=== PATIENT | male | born 1940 | race Caucasian/White ===

== ENCOUNTER 2017-08-02 14:33 | Outpatient (CLI) | payer OTHER ==
[2017-08-02 15:28] LABS: Anion Gap 17 mmol/L (10-20); BUN (Urea Nitrogen) 50 mg/dL (8.4-25.7); Calc. Creatinine Clearance 0 mL/min (70-130); Calcium 9.7 mg/dL (7.8-10.44); Carbon Dioxide 22 mmol/L (23-31); Chloride 106 mmol/L (98-107); Estimated GFR-MDRD 24; Glucose 149 mg/dL (83-110); Potassium 5.1 mmol/L (3.5-5.1); Sodium 140 mmol/L (136-145)
== END 2017-08-02 14:34 | disposition home or self-care (01) ==
LOC: MADLAB 14:33
PROVIDERS: ATTEND Internal Medicine
DX: I12.9 Hypertensive chronic kidney disease with stage 1 through stage 4 chronic kidney disease, or unspecified chronic kidney disease (principal); N18.3 Chronic kidney disease, stage 3 (moderate)
CPT/HCPCS: 36415; 80048

== ENCOUNTER 2018-08-16 10:57 | Outpatient (CLI) | payer OTHER ==
--- NOTE | 2018-08-16 11:29 | CT ---
CT BRAIN WITHOUT CONTRAST HISTORY: Episodic altered awareness, altered mental status COMPARISON: 08/09/2002. FINDINGS: There are changes of cortical atrophy and chronic small vessel ischemic disease. 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 No evidence of acute infarct, hemorrhage, midline shift or abnormal extra-axial fluid collections is seen. The bony calvarium is intact. The visualized paranasa l sinuses and mastoid air cells are well aerated. IMPRESSION: No CT evidence of acute intracranial process.
[2018-08-16 17:56] LABS: Folate (Folic Acid) 6.4 ng/mL (7.0-31.4)
[2018-08-19 14:46] LABS: Albumin 3.8 g/dL (3.4-4.8); Anion Gap 15 mmol/L (10-20); Bilirubin, Total 1.4 mg/dL (0.2-1.2); Calcium 8.9 mg/dL (7.8-10.44); Carbon Dioxide 18 mmol/L (23-31); Chloride 110 mmol/L (98-107); Globulin 2.3 g/dL (2.4-3.5); Glucose 138 mg/dL (83-110); Potassium 4.8 mmol/L (3.5-5.1); Protein, Total 6.1 g/dL (5.8-8.1); Sodium 138 mmol/L (136-145)
[2018-08-19 14:47] LABS: Alkaline Phosphatase 101 U/L (40-150)
[2018-08-19 14:48] LABS: Calc. Creatinine Clearance 0 mL/min (70-130); Estimated GFR-MDRD 25
[2018-08-19 14:49] LABS: BUN (Urea Nitrogen) 33 mg/dL (8.4-25.7)
[2018-08-19 14:50] LABS: AST (SGOT) 17 U/L (5-34)
[2018-08-19 14:51] LABS: ALT (SGPT) 16 U/L (8-55)
== END 2018-08-16 10:58 | disposition home or self-care (01) ==
LOC: MADCT 10:57
PROVIDERS: ATTEND Family Medicine
DX: R40.4 Transient alteration of awareness (principal)
CPT/HCPCS: 36415; 70450; 80053; 82140; 82607; 82746; 84207; 84443; 85025

== ENCOUNTER 2018-10-04 11:29 | Outpatient (CLI) | payer OTHER ==
--- NOTE | 2018-10-04 12:43 | RAD ---
FRONTAL VIEW CHEST: INDICATION: Cough for 1 month. Chronic bronchitis. FINDINGS: There are punctate calcific densities of the chest bilaterally indicating granulomatous calcification . Left-sided AICD from a subclavian approach is present with leads overlying the right atrial and ri ght ventricular regions. Interstitial prominence of each lung is seen. No significant effusion or d iscrete pneumothorax. No lobar consolidation. IMPRESSION: 1. Interstitial prominence of each lung favoring edema. Superimposed interstitial lung disease is n ot excluded. Correlate clinically. 2. Evidence of prior granulomatous disease. POS: C
== END 2018-10-04 11:30 | disposition home or self-care (01) ==
LOC: MADRAD 11:29
PROVIDERS: ATTEND Family Medicine
DX: J44.9 Chronic obstructive pulmonary disease, unspecified (principal)
CPT/HCPCS: 71046

== ENCOUNTER 2019-02-20 11:26 | Outpatient (CLI) | payer OTHER ==
[2019-02-20 12:48] LABS: ALT (SGPT) 14 U/L (8-55); AST (SGOT) 17 U/L (5-34); Albumin 3.9 g/dL (3.4-4.8); Alkaline Phosphatase 95 U/L (40-110); Anion Gap 16 mmol/L (10-20); BUN (Urea Nitrogen) 31 mg/dL (8.4-25.7); Bilirubin, Total 1.3 mg/dL (0.2-1.2); Calc. Creatinine Clearance 0 mL/min (70-130); Carbon Dioxide 22 mmol/L (23-31); Chloride 110 mmol/L (98-107); Estimated GFR-MDRD 20; Globulin 2.7 g/dL (2.4-3.5); Glucose 126 mg/dL (83-110); Potassium 4.6 mmol/L (3.5-5.1); Protein, Total 6.6 g/dL (5.8-8.1); Sodium 143 mmol/L (136-145)
== END 2019-02-20 11:27 | disposition home or self-care (01) ==
LOC: MADLAB 11:26
PROVIDERS: ATTEND Internal Medicine
DX: I12.9 Hypertensive chronic kidney disease with stage 1 through stage 4 chronic kidney disease, or unspecified chronic kidney disease (principal); N18.3 Chronic kidney disease, stage 3 (moderate)
CPT/HCPCS: 36415; 80053; 82306; 83970

== ENCOUNTER 2019-08-05 17:56 | Inpatient (IN) | payer MEDICARE, OTHER ==
[2019-08-05] MEDS: Ascorbic Acid 500 mg Chewable Tablet PO SCH (20:49)
[2019-08-05] MEDS: Carvedilol 3.125 MG TAB PO SCH (20:49)
[2019-08-05] MEDS: Gabapentin 100 MG CAP PO PRN (20:49)
[2019-08-05] MEDS: Senokot 8.6 MG TAB PO SCH (20:49)
[2019-08-05] MEDS: Tamsulosin HCl 0.4 MG CAP PO SCH (20:50)
[2019-08-05] MEDS ORDERED: Heparin 5,000 UNITS/ML VIAL SC SCH (21:00)
[2019-08-05] MEDS: Heparin 5,000 UNITS/ML VIAL SC SCH (21:51)
[2019-08-05] MEDS: Acetaminophen 500 MG TAB PO SCH (22:59)
[2019-08-06] MEDS: Acetaminophen 500 MG TAB PO SCH (05:16)
[2019-08-06 05:23] LABS: #Basophils 0.1 thou/uL (0.0-0.2); #Eosinphils 0.6 thou/uL (0.0-0.7); #Monocytes 0.7 thou/uL (0.11-0.59); %Basophils 0.7 % (0.0-1.0); %Eosinophils 6.6 % (0.0-10.0); %Lymphocytes 10.8 % (21.0-51.0); %Neutrophils 74.9 % (42.0-75.0); Hemoglobin 9.4 g/dL (14.0-18.0); Mean Corpuscular HGB CONC 32.9 g/dL (32.0-36.0); Mean Corpuscular Hemoglobin 32.8 pg (27.0-31.0); Mean Corpuscular Volume 99.7 fL (78.0-98.0); Platelet Count 303 thou/uL (130-400); RBC Distribution Width 15.3 % (11.5-14.5); Red Blood Cell (RBC) Count 2.85 mill/uL (4.70-6.10); White Blood Cell (WBC) Count 9.4 thou/uL (4.8-10.8)
[2019-08-06 05:40] LABS: ALT (SGPT) 17 U/L (8-55); AST (SGOT) 23 U/L (5-34); Albumin 3.2 g/dL (3.4-4.8); Alkaline Phosphatase 104 U/L (40-110); Anion Gap 15 mmol/L (10-20); BUN (Urea Nitrogen) 44 mg/dL (8.4-25.7); Bilirubin, Total 1.2 mg/dL (0.2-1.2); Calc. Creatinine Clearance 25 mL/min (70-130); Calcium 8.4 mg/dL (7.8-10.44); Carbon Dioxide 23 mmol/L (23-31); Chloride 108 mmol/L (98-107); Estimated GFR-MDRD 27; Globulin 2.7 g/dL (2.4-3.5); Glucose 134 mg/dL (83-110); Potassium 4.3 mmol/L (3.5-5.1); Protein, Total 5.9 g/dL (5.8-8.1); Sodium 142 mmol/L (136-145)
[2019-08-06] MEDS: Carvedilol 3.125 MG TAB PO SCH ×2 (08:39→20:21)
[2019-08-06] MEDS: Senokot 8.6 MG TAB PO SCH ×2 (08:39→20:20)
[2019-08-06] MEDS: Finasteride 5 MG TAB PO SCH (08:39)
[2019-08-06] MEDS: Vitamin E 400 UNITS CAP PO SCH (08:40)
[2019-08-06] MEDS: Ascorbic Acid 500 mg Chewable Tablet PO SCH ×2 (08:40→20:21)
[2019-08-06] MEDS: Multivit, Therapeutic 1 TAB PO SCH (08:40)
[2019-08-06] MEDS: Gabapentin 100 MG CAP PO PRN (08:40)
[2019-08-06] MEDS: Ferrous Sulfate 325 MG TAB PO SCH ×2 (08:40→17:01)
[2019-08-06] MEDS: Tamsulosin HCl 0.4 MG CAP PO SCH ×2 (08:40→20:21)
[2019-08-06] MEDS: Heparin 5,000 UNITS/ML VIAL SC SCH ×2 (08:46→20:20)
[2019-08-06] MEDS: Polyethylene Glycol 3350 17 GM Packet PO SCH (08:46)
[2019-08-06] MEDS: Acetaminophen 500 MG TAB PO PRN (12:07)
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
[2019-08-07] MEDS: Acetaminophen 500 MG TAB PO PRN ×2 (08:22→17:51)
[2019-08-07] MEDS: Polyethylene Glycol 3350 17 GM Packet PO SCH (08:26)
[2019-08-07] MEDS: Ascorbic Acid 500 mg Chewable Tablet PO SCH ×2 (08:27→20:50)
[2019-08-07] MEDS: Finasteride 5 MG TAB PO SCH (08:27)
[2019-08-07] MEDS: Heparin 5,000 UNITS/ML VIAL SC SCH ×2 (08:27→20:50)
[2019-08-07] MEDS: Ferrous Sulfate 325 MG TAB PO SCH ×2 (08:27→17:51)
[2019-08-07] MEDS: Multivit, Therapeutic 1 TAB PO SCH (08:27)
[2019-08-07] MEDS: Carvedilol 3.125 MG TAB PO SCH ×2 (08:27→20:50)
[2019-08-07] MEDS: Tamsulosin HCl 0.4 MG CAP PO SCH ×2 (08:27→20:54)
[2019-08-07] MEDS: Senokot 8.6 MG TAB PO SCH ×2 (08:27→20:53)
[2019-08-07] MEDS: Vitamin E 400 UNITS CAP PO SCH (08:38)
[2019-08-07] MEDS: Gabapentin 100 MG CAP PO SCH (20:50)
[2019-08-08] MEDS ORDERED: Tetracaine 0.5% OPHTH SOLN/PF 4 ML BOT ONE (08:27)
[2019-08-08] MEDS: Polyethylene Glycol 3350 17 GM Packet PO SCH (08:31)
[2019-08-08] MEDS: Acetaminophen 500 MG TAB PO PRN ×2 (08:32→18:25)
[2019-08-08] MEDS: Finasteride 5 MG TAB PO SCH (08:33)
[2019-08-08] MEDS: Carvedilol 3.125 MG TAB PO SCH ×2 (08:33→21:12)
[2019-08-08] MEDS: Ascorbic Acid 500 mg Chewable Tablet PO SCH ×2 (08:33→21:12)
[2019-08-08] MEDS: Tamsulosin HCl 0.4 MG CAP PO SCH ×2 (08:33→21:13)
[2019-08-08] MEDS: Ferrous Sulfate 325 MG TAB PO SCH ×2 (08:33→18:25)
[2019-08-08] MEDS: Multivit, Therapeutic 1 TAB PO SCH (08:34)
[2019-08-08] MEDS: Heparin 5,000 UNITS/ML VIAL SC SCH ×2 (08:34→21:13)
[2019-08-08] MEDS: Vitamin E 400 UNITS CAP PO SCH (08:34)
[2019-08-08] MEDS: Senokot 8.6 MG TAB PO SCH ×2 (08:34→21:13)
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
[2019-08-08] MEDS: Gabapentin 100 MG CAP PO SCH (21:12)
[2019-08-09] MEDS: Carvedilol 3.125 MG TAB PO SCH ×2 (08:18→21:19)
[2019-08-09] MEDS: Multivit, Therapeutic 1 TAB PO SCH (08:18)
[2019-08-09] MEDS: Heparin 5,000 UNITS/ML VIAL SC SCH ×2 (08:18→21:20)
[2019-08-09] MEDS: Senokot 8.6 MG TAB PO SCH ×2 (08:18→21:19)
[2019-08-09] MEDS: Tamsulosin HCl 0.4 MG CAP PO SCH ×2 (08:18→21:19)
[2019-08-09] MEDS: Ferrous Sulfate 325 MG TAB PO SCH ×2 (08:18→16:53)
[2019-08-09] MEDS: Ascorbic Acid 500 mg Chewable Tablet PO SCH ×2 (08:18→21:19)
[2019-08-09] MEDS: Finasteride 5 MG TAB PO SCH (08:18)
[2019-08-09] MEDS: Polyethylene Glycol 3350 17 GM Packet PO SCH (08:18)
[2019-08-09] MEDS: Vitamin E 400 UNITS CAP PO SCH (08:36)
[2019-08-09] MEDS ORDERED: Polyethylene Glycol 3350 17 GM Packet PO PRN (11:32)
[2019-08-09] MEDS: Acetaminophen 500 MG TAB PO PRN (21:19)
[2019-08-09] MEDS: Gabapentin 100 MG CAP PO SCH (21:19)
[2019-08-10] MEDS: Tamsulosin HCl 0.4 MG CAP PO SCH ×2 (08:12→20:53)
[2019-08-10] MEDS: Vitamin E 400 UNITS CAP PO SCH (08:12)
[2019-08-10] MEDS: Senokot 8.6 MG TAB PO SCH ×2 (08:12→20:53)
[2019-08-10] MEDS: Finasteride 5 MG TAB PO SCH (08:12)
[2019-08-10] MEDS: Ascorbic Acid 500 mg Chewable Tablet PO SCH ×2 (08:13→20:51)
[2019-08-10] MEDS: Ferrous Sulfate 325 MG TAB PO SCH ×2 (08:13→17:00)
[2019-08-10] MEDS: Multivit, Therapeutic 1 TAB PO SCH (08:13)
[2019-08-10] MEDS: Carvedilol 3.125 MG TAB PO SCH ×2 (08:13→20:52)
[2019-08-10] MEDS: Heparin 5,000 UNITS/ML VIAL SC SCH ×2 (08:13→20:52)
[2019-08-10] MEDS: Gabapentin 100 MG CAP PO SCH (20:52)
[2019-08-10] MEDS: Acetaminophen 500 MG TAB PO PRN (20:53)
[2019-08-11 05:40] LABS: Anion Gap 14 mmol/L (10-20); BUN (Urea Nitrogen) 42 mg/dL (8.4-25.7); Calc. Creatinine Clearance 28 mL/min (70-130); Calcium 8.3 mg/dL (7.8-10.44); Carbon Dioxide 20 mmol/L (23-31); Chloride 111 mmol/L (98-107); Estimated GFR-MDRD 31; Glucose 108 mg/dL (83-110); Potassium 4.3 mmol/L (3.5-5.1); Sodium 141 mmol/L (136-145)
[2019-08-11] MEDS: Ferrous Sulfate 325 MG TAB PO SCH ×2 (08:15→18:53)
[2019-08-11] MEDS: Finasteride 5 MG TAB PO SCH (08:15)
[2019-08-11] MEDS: Multivit, Therapeutic 1 TAB PO SCH (08:15)
[2019-08-11] MEDS: Ascorbic Acid 500 mg Chewable Tablet PO SCH ×2 (08:16→20:39)
[2019-08-11] MEDS: Vitamin E 400 UNITS CAP PO SCH (08:16)
[2019-08-11] MEDS: Carvedilol 3.125 MG TAB PO SCH ×2 (08:16→20:39)
[2019-08-11] MEDS: Tamsulosin HCl 0.4 MG CAP PO SCH ×2 (08:16→20:39)
[2019-08-11] MEDS: Heparin 5,000 UNITS/ML VIAL SC SCH ×2 (08:17→20:43)
[2019-08-11] MEDS: Senokot 8.6 MG TAB PO SCH ×2 (08:23→20:40)
[2019-08-11] MEDS: traMADol HCl 50 MG TAB PO PRN (08:36)
[2019-08-11] MEDS ORDERED: Ferrous Sulfate 325 MG TAB ONE (17:11)
[2019-08-11] MEDS: Gabapentin 100 MG CAP PO SCH (20:39)
[2019-08-11] MEDS: Acetaminophen 500 MG TAB PO PRN (20:39)
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
[2019-08-12] MEDS: Ferrous Sulfate 325 MG TAB PO SCH ×2 (08:21→17:22)
[2019-08-12] MEDS: Finasteride 5 MG TAB PO SCH (08:22)
[2019-08-12] MEDS: Senokot 8.6 MG TAB PO SCH ×2 (08:22→21:25)
[2019-08-12] MEDS: Heparin 5,000 UNITS/ML VIAL SC SCH ×2 (08:22→21:25)
[2019-08-12] MEDS: Carvedilol 3.125 MG TAB PO SCH ×2 (08:22→21:24)
[2019-08-12] MEDS: Ascorbic Acid 500 mg Chewable Tablet PO SCH ×2 (08:22→21:24)
[2019-08-12] MEDS: Tamsulosin HCl 0.4 MG CAP PO SCH ×2 (08:23→21:24)
[2019-08-12] MEDS: Multivit, Therapeutic 1 TAB PO SCH (08:23)
[2019-08-12] MEDS: Vitamin E 400 UNITS CAP PO SCH (08:23)
[2019-08-12] MEDS: Acetaminophen 500 MG TAB PO PRN ×2 (08:23→21:24)
[2019-08-12] MEDS: traMADol HCl 50 MG TAB PO PRN (08:29)
[2019-08-12] MEDS: Gabapentin 100 MG CAP PO SCH (21:25)
[2019-08-13] MEDS: Ferrous Sulfate 325 MG TAB PO SCH ×2 (08:14→17:00)
[2019-08-13] MEDS: Senokot 8.6 MG TAB PO SCH ×2 (08:14→20:08)
[2019-08-13] MEDS: Carvedilol 3.125 MG TAB PO SCH ×2 (08:14→20:08)
[2019-08-13] MEDS: Heparin 5,000 UNITS/ML VIAL SC SCH ×2 (08:14→20:07)
[2019-08-13] MEDS: Tamsulosin HCl 0.4 MG CAP PO SCH ×2 (08:14→20:07)
[2019-08-13] MEDS: Ascorbic Acid 500 mg Chewable Tablet PO SCH ×2 (08:15→20:08)
[2019-08-13] MEDS: Vitamin E 400 UNITS CAP PO SCH (08:15)
[2019-08-13] MEDS: Finasteride 5 MG TAB PO SCH (08:15)
[2019-08-13] MEDS: Multivit, Therapeutic 1 TAB PO SCH (08:15)
[2019-08-13] MEDS: Acetaminophen 500 MG TAB PO PRN (08:17)
[2019-08-13] MEDS: Gabapentin 100 MG CAP PO SCH (20:07)
[2019-08-14] MEDS: Multivit, Therapeutic 1 TAB PO SCH (08:14)
[2019-08-14] MEDS: Vitamin E 400 UNITS CAP PO SCH (08:14)
[2019-08-14] MEDS: Ferrous Sulfate 325 MG TAB PO SCH ×2 (08:15→17:00)
[2019-08-14] MEDS: Tamsulosin HCl 0.4 MG CAP PO SCH ×2 (08:15→20:24)
[2019-08-14] MEDS: Senokot 8.6 MG TAB PO SCH ×2 (08:15→20:24)
[2019-08-14] MEDS: Heparin 5,000 UNITS/ML VIAL SC SCH ×2 (08:16→20:24)
[2019-08-14] MEDS: Finasteride 5 MG TAB PO SCH (08:16)
[2019-08-14] MEDS: Carvedilol 3.125 MG TAB PO SCH ×2 (08:16→20:24)
[2019-08-14] MEDS: Ascorbic Acid 500 mg Chewable Tablet PO SCH ×2 (08:16→20:24)
[2019-08-14] MEDS: traMADol HCl 50 MG TAB PO PRN (09:15)
[2019-08-14] MEDS: Gabapentin 100 MG CAP PO SCH (20:24)
[2019-08-15] MEDS: traMADol HCl 50 MG TAB PO PRN ×2 (07:10→20:41)
[2019-08-15] MEDS: Acetaminophen 500 MG TAB PO PRN (07:11)
[2019-08-15] MEDS: Multivit, Therapeutic 1 TAB PO SCH (08:37)
[2019-08-15] MEDS: Ferrous Sulfate 325 MG TAB PO SCH ×2 (08:37→17:03)
[2019-08-15] MEDS: Ascorbic Acid 500 mg Chewable Tablet PO SCH ×2 (08:38→20:40)
[2019-08-15] MEDS: Vitamin E 400 UNITS CAP PO SCH (08:38)
[2019-08-15] MEDS: Heparin 5,000 UNITS/ML VIAL SC SCH ×2 (08:38→20:45)
[2019-08-15] MEDS: Carvedilol 3.125 MG TAB PO SCH ×2 (08:38→20:41)
[2019-08-15] MEDS: Tamsulosin HCl 0.4 MG CAP PO SCH ×2 (08:38→20:40)
[2019-08-15] MEDS: Senokot 8.6 MG TAB PO SCH ×2 (08:38→20:41)
[2019-08-15] MEDS: Finasteride 5 MG TAB PO SCH (08:38)
[2019-08-15] MEDS: Gabapentin 100 MG CAP PO SCH (20:40)
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
[2019-08-16] MEDS: Vitamin E 400 UNITS CAP PO SCH (09:24)
[2019-08-16] MEDS: Carvedilol 3.125 MG TAB PO SCH ×2 (09:24→20:16)
[2019-08-16] MEDS: Ferrous Sulfate 325 MG TAB PO SCH ×2 (09:24→17:03)
[2019-08-16] MEDS: Multivit, Therapeutic 1 TAB PO SCH (09:24)
[2019-08-16] MEDS: Ascorbic Acid 500 mg Chewable Tablet PO SCH ×2 (09:24→20:16)
[2019-08-16] MEDS: Finasteride 5 MG TAB PO SCH (09:24)
[2019-08-16] MEDS: Tamsulosin HCl 0.4 MG CAP PO SCH ×2 (09:24→20:15)
[2019-08-16] MEDS: Senokot 8.6 MG TAB PO SCH ×2 (09:24→20:16)
[2019-08-16] MEDS: Acetaminophen 500 MG TAB PO PRN (09:25)
[2019-08-16] MEDS: Heparin 5,000 UNITS/ML VIAL SC SCH ×2 (09:25→20:15)
[2019-08-16] MEDS: Gabapentin 100 MG CAP PO SCH (20:16)
[2019-08-17] MEDS: Ferrous Sulfate 325 MG TAB PO SCH ×2 (08:45→17:06)
[2019-08-17] MEDS: Ascorbic Acid 500 mg Chewable Tablet PO SCH ×2 (08:45→20:16)
[2019-08-17] MEDS: Multivit, Therapeutic 1 TAB PO SCH (08:45)
[2019-08-17] MEDS: Senokot 8.6 MG TAB PO SCH ×2 (08:45→20:20)
[2019-08-17] MEDS: Vitamin E 400 UNITS CAP PO SCH (08:45)
[2019-08-17] MEDS: Tamsulosin HCl 0.4 MG CAP PO SCH ×2 (08:46→20:15)
[2019-08-17] MEDS: Heparin 5,000 UNITS/ML VIAL SC SCH ×2 (08:46→20:15)
[2019-08-17] MEDS: Carvedilol 3.125 MG TAB PO SCH ×2 (08:46→20:15)
[2019-08-17] MEDS: Finasteride 5 MG TAB PO SCH (08:46)
[2019-08-17] MEDS: Acetaminophen 500 MG TAB PO PRN (08:46)
[2019-08-17] MEDS: Gabapentin 100 MG CAP PO SCH (20:13)
[2019-08-18] MEDS: Acetaminophen 500 MG TAB PO PRN (03:54)
[2019-08-18] MEDS: Senokot 8.6 MG TAB PO SCH ×2 (08:54→20:47)
[2019-08-18] MEDS: Ferrous Sulfate 325 MG TAB PO SCH ×2 (08:54→17:16)
[2019-08-18] MEDS: Multivit, Therapeutic 1 TAB PO SCH (08:54)
[2019-08-18] MEDS: Finasteride 5 MG TAB PO SCH (08:55)
[2019-08-18] MEDS: Ascorbic Acid 500 mg Chewable Tablet PO SCH ×2 (08:55→20:45)
[2019-08-18] MEDS: Heparin 5,000 UNITS/ML VIAL SC SCH ×2 (08:55→20:46)
[2019-08-18] MEDS: Vitamin E 400 UNITS CAP PO SCH (08:55)
[2019-08-18] MEDS: Tamsulosin HCl 0.4 MG CAP PO SCH ×2 (08:55→20:45)
[2019-08-18] MEDS: Carvedilol 3.125 MG TAB PO SCH ×2 (08:55→20:43)
[2019-08-18] MEDS: traMADol HCl 50 MG TAB PO PRN (19:38)
[2019-08-18] MEDS: Gabapentin 100 MG CAP PO SCH (20:43)
[2019-08-19] MEDS: Acetaminophen 500 MG TAB PO PRN ×2 (05:05→19:26)
[2019-08-19 05:25] LABS: #Eosinphils 0.4 thou/uL (0.0-0.7); #Lymphocytes 0.9 thou/uL (1.20-3.40); #Monocytes 0.5 thou/uL (0.11-0.59); #Neutrophils 4.4 thou/uL (1.40-6.50); %Basophils 0.8 % (0.0-1.0); %Eosinophils 7.1 % (0.0-10.0); %Lymphocytes 14.2 % (21.0-51.0); %Monocytes 8.5 % (0.0-10.0); %Neutrophils 69.5 % (42.0-75.0); Hemoglobin 9.8 g/dL (14.0-18.0); Mean Corpuscular HGB CONC 31.2 g/dL (32.0-36.0); Mean Corpuscular Hemoglobin 32.2 pg (27.0-31.0); Mean Corpuscular Volume 103.3 fL (78.0-98.0); Mean Platelet Volume 7.8 fL (7.4-10.4); Platelet Count 161 thou/uL (130-400); RBC Distribution Width 15.2 % (11.5-14.5); Red Blood Cell (RBC) Count 3.04 mill/uL (4.70-6.10); White Blood Cell (WBC) Count 6.3 thou/uL (4.8-10.8)
[2019-08-19 05:44] LABS: Anion Gap 15 mmol/L (10-20); BUN (Urea Nitrogen) 52 mg/dL (8.4-25.7); Calc. Creatinine Clearance 27 mL/min (70-130); Carbon Dioxide 21 mmol/L (23-31); Chloride 110 mmol/L (98-107); Estimated GFR-MDRD 29; Glucose 112 mg/dL (83-110); Potassium 4.5 mmol/L (3.5-5.1); Sodium 141 mmol/L (136-145)
[2019-08-19] MEDS: Ferrous Sulfate 325 MG TAB PO SCH ×2 (08:05→17:02)
[2019-08-19] MEDS: Senokot 8.6 MG TAB PO SCH ×2 (08:05→20:46)
[2019-08-19] MEDS: Finasteride 5 MG TAB PO SCH (08:05)
[2019-08-19] MEDS: Vitamin E 400 UNITS CAP PO SCH (08:05)
[2019-08-19] MEDS: Multivit, Therapeutic 1 TAB PO SCH (08:05)
[2019-08-19] MEDS: Carvedilol 3.125 MG TAB PO SCH ×2 (08:05→20:48)
[2019-08-19] MEDS: Heparin 5,000 UNITS/ML VIAL SC SCH ×2 (08:05→20:49)
[2019-08-19] MEDS: Tamsulosin HCl 0.4 MG CAP PO SCH ×2 (08:05→20:47)
[2019-08-19] MEDS: Ascorbic Acid 500 mg Chewable Tablet PO SCH ×2 (08:06→20:46)
[2019-08-19] MEDS: Gabapentin 100 MG CAP PO SCH (20:47)
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
[2019-08-20] MEDS: Acetaminophen 500 MG TAB PO PRN (08:32)
[2019-08-20] MEDS: Vitamin E 400 UNITS CAP PO SCH (08:32)
[2019-08-20] MEDS: Multivit, Therapeutic 1 TAB PO SCH (08:32)
[2019-08-20] MEDS: Ferrous Sulfate 325 MG TAB PO SCH ×2 (08:32→16:53)
[2019-08-20] MEDS: Heparin 5,000 UNITS/ML VIAL SC SCH ×2 (08:33→20:25)
[2019-08-20] MEDS: Tamsulosin HCl 0.4 MG CAP PO SCH ×2 (08:33→20:29)
[2019-08-20] MEDS: Senokot 8.6 MG TAB PO SCH ×2 (08:33→22:14)
[2019-08-20] MEDS: Carvedilol 3.125 MG TAB PO SCH ×2 (08:33→20:29)
[2019-08-20] MEDS: Finasteride 5 MG TAB PO SCH (08:33)
[2019-08-20] MEDS: Ascorbic Acid 500 mg Chewable Tablet PO SCH ×2 (08:33→20:26)
[2019-08-20] MEDS: traMADol HCl 50 MG TAB PO PRN (13:26)
[2019-08-20] MEDS: Gabapentin 100 MG CAP PO SCH (20:28)
[2019-08-21] MEDS: traMADol HCl 50 MG TAB PO PRN (07:45)
[2019-08-21] MEDS: Ferrous Sulfate 325 MG TAB PO SCH ×2 (08:56→17:17)
[2019-08-21] MEDS: Carvedilol 3.125 MG TAB PO SCH ×2 (08:57→21:30)
[2019-08-21] MEDS: Ascorbic Acid 500 mg Chewable Tablet PO SCH ×2 (08:57→21:30)
[2019-08-21] MEDS: Finasteride 5 MG TAB PO SCH (08:57)
[2019-08-21] MEDS: Heparin 5,000 UNITS/ML VIAL SC SCH ×2 (08:57→21:30)
[2019-08-21] MEDS: Multivit, Therapeutic 1 TAB PO SCH (08:58)
[2019-08-21] MEDS: Senokot 8.6 MG TAB PO SCH ×2 (08:58→21:31)
[2019-08-21] MEDS: Vitamin E 400 UNITS CAP PO SCH (08:59)
[2019-08-21] MEDS: Tamsulosin HCl 0.4 MG CAP PO SCH ×2 (08:59→21:30)
[2019-08-21 11:31] VITALS: BMI 23.1
[2019-08-21] MEDS: Gabapentin 100 MG CAP PO SCH (21:30)
[2019-08-21] MEDS: Acetaminophen 500 MG TAB PO PRN (23:19)
[2019-08-22] MEDS: traMADol HCl 50 MG TAB PO PRN (04:50)
[2019-08-22] MEDS: Ascorbic Acid 500 mg Chewable Tablet PO SCH ×2 (08:20→20:36)
[2019-08-22] MEDS: Vitamin E 400 UNITS CAP PO SCH (08:20)
[2019-08-22] MEDS: Finasteride 5 MG TAB PO SCH (08:20)
[2019-08-22] MEDS: Multivit, Therapeutic 1 TAB PO SCH (08:20)
[2019-08-22] MEDS: Carvedilol 3.125 MG TAB PO SCH ×2 (08:20→20:36)
[2019-08-22] MEDS: Tamsulosin HCl 0.4 MG CAP PO SCH ×2 (08:20→20:36)
[2019-08-22] MEDS: Ferrous Sulfate 325 MG TAB PO SCH ×2 (08:20→17:39)
[2019-08-22] MEDS: Senokot 8.6 MG TAB PO SCH ×2 (08:21→20:36)
[2019-08-22] MEDS: Heparin 5,000 UNITS/ML VIAL SC SCH ×2 (08:21→20:36)
[2019-08-22] MEDS: Acetaminophen 500 MG TAB PO PRN ×2 (08:25→18:24)
--- NOTE | 2019-08-22 15:50 | RAD ---
TWO VIEWS RIGHT HUMERUS: 08/22/19 COMPARISON: 07/26/19 HISTORY: Fall with recent history of humeral fracture. FINDINGS: Two views right humerus shows a stable comminuted fracture of the proximal aspect of the humerus. Thi s is moderately displaced. No dislocation the glenohumeral joint is seen. No significant callus formation is seen. IMPRESSION: Stable comminuted proximal humeral fracture. POS: [facility]
--- NOTE | 2019-08-22 16:13 | RAD ---
SINGLE VIEW OF THE PELVIS: 08/22/19 COMPARISON: 07/26/19. HISTORY: Fall with history of pubic ramus fracture. FINDINGS: Single view of the pelvis shows a healing right inferior pubic ramus fracture. No separation of the p ubic symphysis or sacroiliac joints is seen. No significant degenerative changes seen in either hip. IMPRESSION: Healing right inferior pubic ramus fracture. POS: EAA
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
[2019-08-22] MEDS: Gabapentin 100 MG CAP PO SCH (20:36)
[2019-08-23 06:39] VITALS: BP 156/77; TEMP 97.9
[2019-08-23] MEDS: Ferrous Sulfate 325 MG TAB PO SCH (08:18)
[2019-08-23] MEDS: Senokot 8.6 MG TAB PO SCH (08:18)
[2019-08-23] MEDS: Tamsulosin HCl 0.4 MG CAP PO SCH (08:18)
[2019-08-23] MEDS: Ascorbic Acid 500 mg Chewable Tablet PO SCH (08:18)
[2019-08-23] MEDS: Vitamin E 400 UNITS CAP PO SCH (08:19)
[2019-08-23] MEDS: Multivit, Therapeutic 1 TAB PO SCH (08:19)
[2019-08-23] MEDS: Carvedilol 3.125 MG TAB PO SCH (08:19)
[2019-08-23] MEDS: Finasteride 5 MG TAB PO SCH (08:19)
[2019-08-23] MEDS: Heparin 5,000 UNITS/ML VIAL SC SCH (08:29)
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
== END 2019-08-23 14:40 | DRG 964 ==
LOC: MADMS 18:52
PROVIDERS: ADMIT Family Medicine; ATTEND Family Medicine
DX: S06.6X0A Traumatic subarachnoid hemorrhage without loss of consciousness, initial encounter (principal); S42.201A Unspecified fracture of upper end of right humerus, initial encounter for closed fracture; S32.501A Unspecified fracture of right pubis, initial encounter for closed fracture; N18.4 Chronic kidney disease, stage 4 (severe); I25.5 Ischemic cardiomyopathy; I12.9 Hypertensive chronic kidney disease with stage 1 through stage 4 chronic kidney disease, or unspecified chronic kidney disease; E78.5 Hyperlipidemia, unspecified; E11.22 Type 2 diabetes mellitus with diabetic chronic kidney disease; J44.9 Chronic obstructive pulmonary disease, unspecified; I71.4 Abdominal aortic aneurysm, without rupture; N40.0 Benign prostatic hyperplasia without lower urinary tract symptoms; K21.9 Gastro-esophageal reflux disease without esophagitis; R33.9 Retention of urine, unspecified; S02.412A LeFort II fracture, initial encounter for closed fracture; D50.9 Iron deficiency anemia, unspecified; Z95.810 Presence of automatic (implantable) cardiac defibrillator; Z88.0 Allergy status to penicillin; Z95.5 Presence of coronary angioplasty implant and graft; Z90.49 Acquired absence of other specified parts of digestive tract; Z87.891 Personal history of nicotine dependence
CPT/HCPCS: 36415; 70450; 72170; 80048; 80053; 85025; J1644

== ENCOUNTER 2019-10-22 09:50 | Outpatient (CLI) | payer OTHER ==
--- NOTE | 2019-10-22 11:02 | CT ---
HEAD CT WITHOUT CONTRAST: HISTORY: Follow-up exam. Traumatic hemorrhage. COMPARISON: 09/17/2019. FINDINGS: Hemorrhage: Interval development of a mixed attenuation extraaxial collection along the left frontal, left occipital, left temporal and parietal convexity. This mixed attenuation collection measures 1.7 cm. Brain parenchyma: Mass effect upon the left cerebrum with mild sulcal effacement. Cortical song-white matter differentiation is preserved. White matter hypodensities due to chronic small vessel ischemic change.3.8 mm of [id number] subfalcine herniation. Stable encephalomalacia and gliosis in volving the right cerebrum. Ventricular system: Stable configuration of the ventricular system, with the exception of the left te mporal horn which has decreased in size, likely due to mass effect from extraaxial hematoma. Calvarium: Intact. Sinuses and mastoid air cells: Adequate aeration. IMPRESSION: 1. Interval development of a left-sided subdural hematoma with mixed attenuation suggesting subacute and acute hemorrhage. 2. Mass effect upon the left cerebrum with a [id number] subfalcine herniation. There is sulcal eff acement. Mass effect upon the left temporal horn of the ventricular system. 3. Results of the study discussed, via [place] connect with Dr. Larson 10/22/2019 at 11:00 AM. Code CR Transcribed Date/Time: 10/22/2019 11:28 AM
== END 2019-10-22 09:51 | disposition home or self-care (01) ==
LOC: MADCT 09:50
PROVIDERS: ATTEND Neurological Surgery
DX: S06.369D Traumatic hemorrhage of cerebrum, unspecified, with loss of consciousness of unspecified duration, subsequent encounter (principal); S06.5X9A Traumatic subdural hemorrhage with loss of consciousness of unspecified duration, initial encounter; M89.8X8 Other specified disorders of bone, other site
CPT/HCPCS: 70450